=== PATIENT | male | born 1955 | race American Indian/Alaskan Native ===

== ENCOUNTER 2022-12-09 22:46 | Inpatient (IN) | payer OTHER ==
[~2022-12-09] VITALS: Ht 182.9 cm; Wt 94.9 kg
[2022-12-09] MEDS ORDERED: FAMOTIDINE 20 MG/2 ML VIAL IVP ONE ×2 (23:15)
[2022-12-09] MEDS ORDERED: ACETAMINOPHEN 500 MG TABLET PO ONE ×2 (23:15)
[2022-12-09] MEDS ORDERED: ONDANSETRON HCL 4 MG/2 ML VIAL IVP ONE ×2 (23:15)
[2022-12-09] MEDS ORDERED: SODIUM CHLORIDE 0.9% 1,000 ML IV ONE ×2 (23:15)
[2022-12-09 23:52] LABS: BASOPHILS % (AUTO) 0.5 % (0.0-2.0); EOSINOPHILS % (AUTO) 0.1 % (1.0-6.0); HEMOGLOBIN 14.7 g/dL (13.5-17.5); LYMPHOCYTES # (AUTO) 1.1 K/uL (1.0-4.8); LYMPHOCYTES % (AUTO) 7.9 % (22.0-44.0); MEAN CORPUSCULAR HEMOGLOBIN 30.1 pg (26.0-34.0); MEAN CORPUSCULAR HGB CONC 32.7 G/dL (31.0-37.0); MEAN CORPUSCULAR VOLUME 92 fL (80-100); MONOCYTES # (AUTO) 1.3 K/uL (0.1-1.0); MONOCYTES % (AUTO) 9.4 % (2.0-9.0); NEUTROPHILS # (AUTO) 11.3 K/uL (1.8-7.7); NEUTROPHILS % (AUTO) 82.1 % (40.0-70.0); PLATELET COUNT (AUTO) 193 K/uL (150-450); RED CELL DISTRIBUTION WIDTH 13.6 % (11.5-14.5); WHITE BLOOD COUNT (AUTO) 13.8 K/uL (4.5-11.0)
[2022-12-09 23:55] LABS: CALCIUM, TOTAL 8.6 mg/dL (8.8-10.5); CARBON DIOXIDE 24 mmol/L (22-29); CHLORIDE 101 mmol/L (98-107); CREATININE 0.82 mg/dL (0.60-1.30); GLOMERULAR FILTR. RATE CALC > 60 mL/min (>60); GLUCOSE,RANDOM 144 mg/dL (70-110); POTASSIUM 4.2 mmol/L (3.5-5.1); UREA NITROGEN, BLOOD 23 mg/dL (7-18)
[2022-12-10] VITALS (13 sets, daily range): BP systolic 114–169; BP diastolic 64–83; PULSE 42–58; RESP 19–20; TEMP 97.7–98
[2022-12-10] LABS: INR 1.1 (0.9-1.1); PROTHROMBIN TIME 11.1 SEC (9.4-11.6)
[2022-12-10] MEDS ORDERED: MORPHINE SULFATE 2 MG/ML SYRINGE IVP PRN
[2022-12-10] MEDS ORDERED: ATORVASTATIN CALCIUM 40 MG TABLET PO ONE
[2022-12-10] MEDS ORDERED: ONDANSETRON HCL 4 MG/2 ML VIAL IVP PRN
[2022-12-10 00:01] LABS: ALANINE AMINOTRANSFERASE 30 U/L (12-78); ALBUMIN 3.4 g/dL (3.4-5.0); ALKALINE PHOSPHATASE 76 U/L (46-116); ASPARTATE AMINOTRANSFERASE 10 U/L (15-37); BILIRUBIN,TOTAL 0.3 mg/dL (0.1-1.0); CREATINE KINASE, TOTAL ONLY 34 U/L (39-308); LIPASE 41 U/L (16-77); TOTAL PROTEIN, SERUM 6.2 g/dL (6.4-8.2)
[2022-12-10 00:03] LABS: TROPONIN I-HIGH SENSITIVITY 14 ng/L (<76)
[2022-12-10 00:11] LABS: ANION GAP 13 mmol/L (8-16); SODIUM SERUM 138 mmol/L (136-145)
[2022-12-10 00:15] LABS: RBC MORPHOLOGY COMMENT NORMAL RBC MORPH
[2022-12-10 00:31] LABS: COVID AG,FIA SOURCE NASOPHARYNGEAL
[2022-12-10 00:35] LABS: CHOLESTEROL 186 mg/dL (131-200); HDL CHOLESTEROL 31 mg/dL (40-60); LDL CHOL (CALC.) 85 mg/dL (0-130); TRIGLYCERIDES 351 mg/dL (15-150)
[2022-12-10 00:39] LABS: HEMOGLOBIN A1C 6.1 % (3.8-5.6)
[2022-12-10 00:51] LABS: SARS-COV2 (COVID) ANTIGEN,FIA Negative (Negative)
[2022-12-10 02:09] LABS: APPEARANCE,URINE CLEAR (CLEAR); BILIRUBIN,URINE NEGATIVE (NEGATIVE); COLOR,URINE LIGHT YELLOW (YELLOW); GLUCOSE, URINE (UA) NEGATIVE (NEGATIVE); KETONES,URINE NEGATIVE (NEGATIVE); LEUKOCYTE ESTERASE ,URINE NEGATIVE (NEGATIVE); NITRATE,URINE NEGATIVE (NEGATIVE); OCCULT BLOOD,URINE NEGATIVE (NEGATIVE); PROTEIN,URINE NEGATIVE (NEGATIVE); SPECIFIC GRAVITIY, URINE 1.014 (1.003-1.030); UROBILINOGEN,URINE <=1.0 mg/dL (<=1.0)
[2022-12-10] MEDS ORDERED: HEPARIN SODIUM 25000 UNITS/D5W 250 ML IV PRN (08:45)
[2022-12-10] MEDS ORDERED: HEPARIN SODIUM,PORCINE 5,000 UNITS/ML VIAL IVP ONE (08:45)
[2022-12-10] MEDS ORDERED: HEPARIN SODIUM,PORCINE 5,000 UNITS/ML VIAL IVP PRN ×2 (08:45)
[2022-12-10 09:48] LABS: BASOPHILS % (AUTO) 0.4 % (0.0-2.0); EOSINOPHILS % (AUTO) 0.3 % (1.0-6.0); HEMATOCRIT 43.7 % (41-53); HEMOGLOBIN 14.6 g/dL (13.5-17.5); LYMPHOCYTES # (AUTO) 1.3 K/uL (1.0-4.8); LYMPHOCYTES % (AUTO) 13.8 % (22.0-44.0); MEAN CORPUSCULAR HEMOGLOBIN 30.9 pg (26.0-34.0); MEAN CORPUSCULAR HGB CONC 33.5 G/dL (31.0-37.0); MEAN CORPUSCULAR VOLUME 92 fL (80-100); MONOCYTES # (AUTO) 0.5 K/uL (0.1-1.0); NEUTROPHILS # (AUTO) 7.3 K/uL (1.8-7.7); NEUTROPHILS % (AUTO) 80.5 % (40.0-70.0); PLATELET COUNT (AUTO) 177 K/uL (150-450); RED BLOOD CELL COUNT(AUTO) 4.74 MIL/uL (4.50-5.90); RED CELL DISTRIBUTION WIDTH 13.5 % (11.5-14.5); WHITE BLOOD COUNT (AUTO) 9.1 K/uL (4.5-11.0)
[2022-12-10] MEDS: ASPIRIN 81 MG CHEWABLE TABLET PO SCH (09:48)
[2022-12-10 10:00] LABS: INR 1.1 (0.9-1.1); PROTHROMBIN TIME 11.3 SEC (9.4-11.6)
[2022-12-10 10:05] LABS: TROPONIN I-HIGH SENSITIVITY 71 ng/L (<76)
[2022-12-10] MEDS: SERTRALINE HCL 100 MG TABLET PO SCH (11:18)
[2022-12-10] MEDS ORDERED: HEPARIN SODIUM 1000 UNITS/NS 1,000 ML ONE (14:18)
[2022-12-10] MEDS ORDERED: LIDOCAINE/PF 1% 30 ML VIAL ONE (14:18)
[2022-12-10] MEDS ORDERED: SODIUM BICARBONATE 50 MEQ/50 ML VIAL ONE (14:18)
[2022-12-10] MEDS ORDERED: IOHEXOL 300 MG/ML 100 ML VIAL ONE (14:18)
[2022-12-10] MEDS ORDERED: VERAPAMIL HCL 2.5 MG/ML 2 ML VIAL ONE (14:19)
[2022-12-10] MEDS ORDERED: NITROGLYCERIN 50 MG/D5% WATER 250 ML ONE (14:19)
[2022-12-10] MEDS ORDERED: ATEN-187 PO (14:59)
[2022-12-10] MEDS ORDERED: LISI2.5T13 PO (14:59)
[2022-12-10] MEDS ORDERED: SERT-162 PO (14:59)
[2022-12-10] MEDS ORDERED: ATOR-2 PO (14:59)
[2022-12-10] MEDS ORDERED: MIDAZOLAM HCL 2 MG/2 ML VIAL ONE (15:16)
[2022-12-10] MEDS ORDERED: FentaNYL CITRATE PF 100 MCG/2 ML VIAL ONE (15:16)
[2022-12-10] MEDS ORDERED: LIDOCAINE 1% 30 ML/SOD BICARB 8.4% 4 ML SQ ONE (15:30)
[2022-12-10] MEDS ORDERED: IOHEXOL 300 MG/ML 100 ML VIAL IARTER ONE ×2 (15:30→15:45)
[2022-12-10] MEDS ORDERED: HEPARIN SODIUM 1000 UNITS/NS 1,000 ML IARTER ONE (15:30)
[2022-12-10] MEDS ORDERED: FentaNYL CITRATE PF 100 MCG/2 ML VIAL IVP ONE (15:30)
[2022-12-10] MEDS ORDERED: MIDAZOLAM HCL 2 MG/2 ML VIAL IVP ONE (15:30)
[2022-12-10] MEDS ORDERED: ATROPINE SULFATE 0.1 MG/ML 10 ML SYRINGE IVP ONE (15:38)
[2022-12-10] MEDS ORDERED: NITROGLYCERIN/D5W 50 MG/250 ML IV BOTTLE IARTER ONE (15:45)
[2022-12-10] MEDS ORDERED: HEPARIN SODIUM,PORCINE 1,000 UNITS/ML 10 ML VIAL IVP ONE (15:45)
[2022-12-10] MEDS ORDERED: HEPARIN SODIUM,PORCINE 1,000 UNITS/ML 10 ML VIAL IARTER ONE (15:45)
[2022-12-10] MEDS ORDERED: ASPIRIN 81 MG CHEWABLE TABLET ONE (16:06)
[2022-12-10] MEDS ORDERED: TICAGRELOR 90 MG TABLET PO ONE (16:15)
[2022-12-10] MEDS ORDERED: ASPIRIN 81 MG CHEWABLE TABLET PO ONE ×2 (16:15)
[2022-12-10] MEDS ORDERED: ATORVASTATIN CALCIUM 40 MG TABLET PO SCH (21:00)
[2022-12-10] MEDS: TICAGRELOR 90 MG TABLET PO SCH (21:07)
[2022-12-10] MEDS: ACETAMINOPHEN 325 MG TABLET PO PRN (21:38)
[2022-12-11 00:15] VITALS: BP 111/57; PULSE 52; RESP 17; TEMP 97.4
[2022-12-11 04:43] VITALS: BP 130/74; PULSE 49; RESP 17; TEMP 97.5
[2022-12-11 06:30] LABS: BASOPHILS % (AUTO) 0.3 % (0.0-2.0); EOSINOPHILS % (AUTO) 0.5 % (1.0-6.0); HEMATOCRIT 45.2 % (41-53); HEMOGLOBIN 15.2 g/dL (13.5-17.5); LYMPHOCYTES % (AUTO) 11.1 % (22.0-44.0); MEAN CORPUSCULAR HEMOGLOBIN 31.1 pg (26.0-34.0); MEAN CORPUSCULAR HGB CONC 33.5 G/dL (31.0-37.0); MEAN CORPUSCULAR VOLUME 93 fL (80-100); MONOCYTES # (AUTO) 0.8 K/uL (0.1-1.0); MONOCYTES % (AUTO) 8.2 % (2.0-9.0); NEUTROPHILS # (AUTO) 7.4 K/uL (1.8-7.7); NEUTROPHILS % (AUTO) 79.9 % (40.0-70.0); PLATELET COUNT (AUTO) 161 K/uL (150-450); RED BLOOD CELL COUNT(AUTO) 4.88 MIL/uL (4.50-5.90); RED CELL DISTRIBUTION WIDTH 13.6 % (11.5-14.5); WHITE BLOOD COUNT (AUTO) 9.3 K/uL (4.5-11.0)
[2022-12-11 07:10] LABS: ANION GAP 10 mmol/L (8-16); CALCIUM, TOTAL 8.6 mg/dL (8.8-10.5); CARBON DIOXIDE 24 mmol/L (22-29); CHLORIDE 105 mmol/L (98-107); CREATININE 0.56 mg/dL (0.60-1.30); GLOMERULAR FILTR. RATE CALC > 60 mL/min (>60); GLUCOSE,RANDOM 100 mg/dL (70-110); SODIUM SERUM 139 mmol/L (136-145); UREA NITROGEN, BLOOD 12 mg/dL (7-18)
[2022-12-11 07:35] VITALS: BP 122/70; PULSE 49; RESP 18; TEMP 98
[2022-12-11 08:14] LABS: TROPONIN I-HIGH SENSITIVITY 196 ng/L (<76)
[2022-12-11] MEDS: ACETAMINOPHEN 325 MG TABLET PO PRN ×2 (08:43→13:51)
[2022-12-11] MEDS: TICAGRELOR 90 MG TABLET PO SCH (08:43)
[2022-12-11] MEDS: ASPIRIN 81 MG CHEWABLE TABLET PO SCH (08:43)
[2022-12-11] MEDS: SERTRALINE HCL 100 MG TABLET PO SCH (08:43)
[2022-12-11 08:44] LABS: THYROID STIMULATING HORMONE 2.56 uIU/mL (0.36-3.74)
[2022-12-11 12:06] VITALS: BP 111/69; PULSE 52; RESP 19; TEMP 97.8
[2022-12-11] MEDS ORDERED: TICA90TA PO (16:17)
[2022-12-11] MEDS ORDERED: ASPI81TA39 PO (16:48)
[2022-12-11 16:50] VITALS: BP 119/57; PULSE 51; RESP 18; TEMP 98.1
== END 2022-12-11 17:10 | disposition home or self-care (01) | DRG 247 ==
LOC: EMS 22:48 → 5S 12-10 05:15
PROVIDERS: ADMIT Internal Medicine; ATTEND Internal Medicine
PROC: 027034Z Dilation of Coronary Artery, One Artery with Drug-eluting Intraluminal Device, Percutaneous Approach (ICD-10-PCS; principal; 2022-12-10)
PROC: 02703ZZ Dilation of Coronary Artery, One Artery, Percutaneous Approach (ICD-10-PCS; 2022-12-10)
PROC: 4A023N7 Measurement of Cardiac Sampling and Pressure, Left Heart, Percutaneous Approach (ICD-10-PCS; 2022-12-10)
PROC: B2111ZZ Fluoroscopy of Multiple Coronary Arteries using Low Osmolar Contrast (ICD-10-PCS; 2022-12-10)
PROC: B2151ZZ Fluoroscopy of Left Heart using Low Osmolar Contrast (ICD-10-PCS; 2022-12-10)
DX: T82.855A Stenosis of coronary artery stent, initial encounter (principal); I25.110 Atherosclerotic heart disease of native coronary artery with unstable angina pectoris; R65.10 Systemic inflammatory response syndrome (SIRS) of non-infectious origin without acute organ dysfunction; I95.9 Hypotension, unspecified; R73.03 Prediabetes; F32.A Depression, unspecified; F41.9 Anxiety disorder, unspecified; I44.0 Atrioventricular block, first degree; Z20.822 Contact with and (suspected) exposure to COVID-19; Y83.1 Surgical operation with implant of artificial internal device as the cause of abnormal reaction of the patient, or of later complication, without mention of misadventure at the time of the procedure; E78.00 Pure hypercholesterolemia, unspecified; I10 Essential (primary) hypertension; Z95.5 Presence of coronary angioplasty implant and graft; I25.2 Old myocardial infarction; Y92.89 Other specified places as the place of occurrence of the external cause
CPT/HCPCS: 71045; 80048; 80053; 80061; 81003; 82550; 83036; 83690; 83880; 84443; 84484; 85025; 85610; 85730; 92920; 92928; 93005; 93306; 99291; G0378; J0461; J1644; J2250; J2405; J3010; J3490; J7030; Q9967; 36415-L1; 36415-TC; Z7610